=== PATIENT | female | born 1975 | race Caucasian/White ===

== ENCOUNTER 2022-06-30 09:47 | Emergency (ER) | payer BC, SELFPAY ==
[2022-06-30 10:14] VITALS: BP 140/92; PULSE 81; RESP 18; TEMP 36.7; O2SAT 99
--- NOTE | 2022-06-30 10:25 | ED.FEMALEGU ---
HPI - Female Genitourinary General Chief complaint: Urogenital-Female Stated complaint: lower back / painful urination Time Seen by Provider: 06/30/22 10:20 Source: patient, RN notes reviewed and old records reviewed Mode of arrival: ambulatory Limitations: no limitations History of Present Illness HPI Narrative: 47 year old female who presents to [facility] with complaints of 2 day history of left flank/low back pain, urinary frequency, dribbling, pain with urination, voiding decreased amounts and suprapubic pain and perineal pressure for the past 2 days. Patient reports that she has not had any fevers, chills or sweats or any nausea or vomiting. Patient reports no vaginal discharge or itching denies any concern for STD exposure. Patient has not taken any medications for her symptoms. MD elicited complaint: UTI Pertinent past history: other (UTI, kidney stone) Onset (ago): day(s) (2) Location of symptoms: perineum, suprapubic and flank (left) Severity: severe Severity scale (1-10): 7 Quality of pain: sharp, burning and aching Vaginal discharge: none Related Data Home Medications Medication Instructions Recorded Confirmed lisinopril 20 mg tablet 20 mg PO DAILY 06/30/22 06/30/22 mirtazapine 15 mg tablet 15 mg PO DAILY 06/30/22 06/30/22 sertraline 100 mg tablet 100 mg PO DAILY 06/30/22 06/30/22 Allergies Allergy/AdvReac Type Severity Reaction Status Date / Time Penicillins Allergy Unknown Verified 06/30/22 10:12 Review of Systems Review of Systems: CONSTITUTIONAL: Denies fever, chills, or sweats. CARDIOVASCULAR: Denies chest pain, palpitations, or edema. RESPIRATORY: Denies cough or dyspnea. GASTROINTESTINAL: reports supra pubic abdominal pain,no nausea, vomiting, or diarrhea. GENITOURINARY: Reports dysuria, frequency, urgency. reports left flank pain, no visible hematuria. SKIN: Denies rash or itching. MUSCULOSKELETAL:left flank/lower back pain or myalgia. reports left CVA tenderness NEUROLOGIC: Denies headache All systems reviewed & are unremarkable except as noted in HPI and below PMFSH Past Medical History Medical History (Updated 07/01/22 @ 09:20 by Ofe Torres NP) Anxiety and depression Hypertension Kidney stone UTI (urinary tract infection) Surgical History Surgical History (Updated 07/01/22 @ 09:25 by Ofe Torres NP) History of appendectomy Social History Social History (Updated 07/01/22 @ 09:25 by Ofe Torres NP) Smoking status: Current every day smoker Tobacco type: cigarettes Alcohol intake: current Alcohol use details: rare social Substance use type: does not use Living arrangements: with family Gender identity (if verbalized by the patient): Female Comments At time of signature, agree with nursing past medical, surgical, social and family history. There is no relevant family history pertinent to the presenting complaint Exam Narrative: GENERAL: Well-appearing, well-nourished, and in no acute distress. HEAD: Normocephalic, atraumatic. NECK: Supple. no lymphadenopathy CHEST: Clear to auscultation. No respiratory distress.SAO2 99% on room air HEART: Regular rate and rhythm. No murmur heard. Normal peripheral pulses. ABDOMEN: Soft, suprapubic tender, nondistended, normal active bowel sounds. Left CVA tenderness, perineal pressure, frequency urgency and dribbling with urination EXTREMITIES: Normal range of motion. No edema. SKIN: Warm, dry, no rash. NEURO: No focal deficits. Alert and oriented x3. Course Course Emergency Course: Patient is aware of diagnosis, understands and agrees to treatment plan.? Anticipatory guidance given.? Patient agrees to follow-up as directed and is aware of reasons to seek care at the emergency department. Portions of this record may have been created with voice recognition software Level of Care: Express Care Visit Vital Signs Vital signs: Vital Signs Temperature 36.7 C 06/30/22 10:14 Pulse Rate 81 06/30/22 1
== END 2022-06-30 10:40 | disposition home or self-care (01) ==
PROVIDERS: Emergency Provider Registered Nurse; PCP Physician Assistant
DX: N39.0 Urinary tract infection, site not specified (principal); F41.9 Anxiety disorder, unspecified; F32.A Depression, unspecified; I10 Essential (primary) hypertension; F17.210 Nicotine dependence, cigarettes, uncomplicated
CPT/HCPCS: 81003; 87077; 87086; 87186; 99213; G0463

== ENCOUNTER 2022-08-11 11:56 | Emergency (ER) | payer BC, SELFPAY ==
[2022-08-11 12:08] VITALS: BP 110/83; PULSE 98; RESP 18; TEMP 36.7; O2SAT 98
[2022-08-11 12:18] VITALS: BP 110/83; PULSE 98; RESP 18; TEMP 36.7; O2SAT 98
--- NOTE | 2022-08-11 12:24 | ED.GENADULT ---
HPI - General Adult General Chief complaint: Skin/Abscess/Foreign Body Stated complaint: Rash Time Seen by Provider: 08/11/22 12:24 Source: patient Mode of arrival: ambulatory Limitations: no limitations History of Present Illness HPI narrative: 47-year-old female presented for 3 complaints. She states she had a scheduled appointment with her PCP, however the step taking her insurance and notified her when she arrived. She has had a cough for approximately 3 months, states is nonproductive. She denies associated shortness of breath, wheezing, hemoptysis, postnasal drainage or sinus congestion. She is not taking anything for the cough. This cough started after initiating lisinopril for hypertension. Patient is requesting refill on sertraline. She states she is unable to establish with a psychiatrist. Endorses 6 week intense outpatient therapy January 2022, dx with dissociative identity disorder and borderline personality disorder. She denies SI/HI. States she ran out of the medication 3 days ago. Plans to establish with a therapist and psychiatrist as soon as possible. Patient also endorses rash to bilateral lower extremities and bilateral elbows for several months, worsening over last winter. Rash is red and flaky. States the rash is extremely itchy when she is hot. Denies change to lotion, soap, detergent etc. She applies [employer] lotion for eczema to the sites without significant improvement. 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 Denies pus/drainage or pain to the lesions. Related Data Home Medications Medication Instructions Recorded Confirmed lisinopril 20 mg tablet 20 mg PO DAILY 08/11/22 08/11/22 sertraline 100 mg tablet 100 mg PO DAILY 08/11/22 08/11/22 Allergies Allergy/AdvReac Type Severity Reaction Status Date / Time Penicillins Allergy Unknown Verified 08/11/22 12:32 Review of Systems Review of Systems: CONSTITUTIONAL: Denies body aches, fever, chills, or sweats. EYES: Denies visual changes, redness, or discharge. ENT: Denies rhinorrhea, congestion CARDIOVASCULAR: Denies chest pain, palpitations, or edema. RESPIRATORY: Reports cough Denies dyspnea. GASTROINTESTINAL: Denies abdominal pain, nausea, vomiting, or diarrhea. SKIN: per HPI MUSCULOSKELETAL: Denies back pain, joint pain, or myalgia. NEUROLOGIC: Denies headache, numbness, tingling, or weakness. [facility] Past Medical History Medical History Anxiety and depression Borderline personality disorder Dissociative identity disorder Hypertension Kidney stone UTI (urinary tract infection) Surgical History Surgical History History of appendectomy Family History Family History (Updated 08/11/22 @ 13:02 by Edie Melchor APRN) Other Breast cancer Lung cancer Social History Social History (Updated 08/11/22 @ 13:02 by Edie Melchor APRN) Smoking status: Current every day smoker Tobacco type: e-cigarettes/vaping Alcohol intake: current Alcohol use details: rare social Substance use type: does not use Living arrangements: with family Gender identity (if verbalized by the patient): Female Comments At time of signature, I have reviewed and agree with nursing past medical, surgical, social and family history unless otherwise noted. Please see nursing chart for further information. There is no relevant family history pertinent to the presenting complaint Exam Narrative: GENERAL: Well-appearing HEAD: Normocephalic, atraumatic. EYES: conjunctivae clear, and EOMI. ENT: Mucous membranes moist. Oropharynx without edema, erythema or lesions. NECK: Supple. No lymphadenopathy CHEST: Clear to auscultation. No cough noted. HEART: Regular rate and rhythm. SKIN: Warm, dry. Extensive erythematous flaky lesions
== END 2022-08-11 13:00 | disposition home or self-care (01) ==
PROVIDERS: Emergency Provider Nurse Practitioner Family; PCP Physician Assistant
DX: L30.9 Dermatitis, unspecified (principal); R05.2 Subacute cough; F17.290 Nicotine dependence, other tobacco product, uncomplicated; I10 Essential (primary) hypertension; F41.9 Anxiety disorder, unspecified; F32.A Depression, unspecified
CPT/HCPCS: 99213; G0463